=== PATIENT | male | born 1965 | race Caucasian/White ===

== ENCOUNTER 2023-12-17 14:37 | Emergency (ER) | payer OTHER, SELFPAY ==
[2023-12-17 14:43] VITALS: BP 215/131
[2023-12-17 15:03] LABS: % Basophils 0.8 % (0-2); % Eosinophils 2.2 % (0-6); % Immature Granulocytes 0.6 % (0-0.5); % Lymphocytes 17.8 % (20.5-51.1); % Monocytes 8.2 % (1.7-9.3); % Neutrophils 70.4 % (42.2-75.2); Absolute Basophils 0.1 10^3/uL (0-0.2); Absolute Eosinophils 0.2 10^3/uL (0-0.7); Absolute Immature Granulocytes 0.1 10^3/uL (0-0.05); Absolute Lymphocytes 1.6 10^3/uL (1.2-3.4); Absolute Monocytes 0.7 10^3/uL (0.1-0.6); Absolute Neutrophils 6.2 10^3/uL (1.4-6.5); Hematocrit 45.5 % (39.0-52.0); Hemoglobin 16.8 g/dL (13.0-18.0); Mean Corp Hgb Conc. 36.9 g/dL (33.0-37.0); Mean Corpuscular Hgb 33.8 pg (27.0-31.0); Mean Corpuscular Volume 91.5 fL (80.0-94.0); Mean Platelet Volume 8.1 fL (7.4-10.4); Nucleated Red Blood Cells % 0 % (-); Platelet Count 262 10^3/uL (130-400); Red Blood Cell Count 4.97 10^6/uL (4.70-6.10); Red Cell Dist. Width 12.5 % (11.5-14.5); White Blood Cell Count 8.8 10^3/uL (4.8-10.8)
[2023-12-17 15:19] LABS: ALT (SGPT) 26 U/L (0-50); AST (SGOT) 29 U/L (17-59); Albumin 4.5 g/dl (3.5-5.0); Alkaline Phosphatase 69 U/L (38-126); Blood Urea Nitrogen 20 mg/dl (9-20); Carbon Dioxide 25 mmol/L (22-30); Chloride 99 mmol/L (98-107); Glucose 123 mg/dl (70-99); Potassium 4.4 mmol/L (3.5-5.1); Sodium 137 mmol/L (135-145); Total Bilirubin 1.1 mg/dl (0.2-1.3); Total Protein 7.4 g/dl (6.3-8.2); eGFR > 60.00
[2023-12-17 16:23] VITALS: BMI 35.8
[2023-12-17 16:27] VITALS: BP 177/112
[2023-12-17 16:30] VITALS: BP 188/124
[2023-12-17 17:00] VITALS: BP 163/121
[2023-12-17] MEDS: NORVASC 10 MG PO (17:23)
[2023-12-17 18:00] VITALS: BP 184/122
--- NOTE | 2023-12-17 18:05 | ED.SKININJ ---
HPI-Injury
General
Chief Complaint: Skin Surface Trauma
Source: patient
Exam Limitations: none
Time Seen by Provider: 12/17/23 16:09
Nursing documentation reviewed up to this point in time: agreed with
Travel History
Have you had any contact with someone who has COVID-19?: No
Do you have any symptoms of coronavirus? Fever > 100 degrees, chills, cough, shortness of breath, sore throat, loss of taste or smell, muscle aches, or headache?: No
History of Present Illness-Injury
Initial Injury comments:
58-year-old male with history of HTN, hyperglycemia at 1 time was morbidly obese and after losing weight and getting in shape his hypertension and hyperglycemia no longer needed to be treated. He presents today with a 2-day-old laceration of the
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 He states he has been applying ice to the lip. He states he figured it would heal
on its own but his talked him into coming here to get it evaluated. On arrival his blood pressure was very high at 215/131 and then rechecked 163/121.
He admits that he has gained 25 pounds, has started drinking again and feels very unhealthy.
He denies headache, denies chest pain or trouble breathing.
Review of Systems
Review of Systems
Allergies reviewed?: Yes
All Other Systems: ROS reviewed and negative except as documented in HPI and ROS
Constitutional: Denies fever
EENT: Reports mouth swelling (Upper lip swollen, thick scab on most of the upper lip, laceration mid upper lip)
Cardiac: Denies chest pain
ABD/GI: Denies abdominal pain or nausea
Musculoskeletal: Denies edema
Skin: Reports other (Old laceration upper lip)
Neurological: Denies dizzy, headache, weakness or numbness
Phy Exam
Physical Exam
Physical Exam:
GENERAL: No acute distress. A&Ox3.
CONSTITUTIONAL: Afebrile.
EYES: PERRL, conjunctivae normal
ENMT: moist mucus membranes, Pharynx nl
RESPIRATORY: Regular respirations, nonlabored, lungs clear.
CARDIOVASCULAR: Regular rate and rhythm, no murmurs, no rubs.
GI: Soft, obese, nontender, normal BS
MUSCULOSKELETAL: Moves with ease. Well perfused. No edema
SKIN: Warm, dry, pink. There is a midline upper lip laceration edges about 3 mm apart with pink granulation tissue, thick surrounding eschar bilaterally on either side of the laceration covering most of the inner upper lip.
PSYCH: Anxious mood and affect. Well kept, interactive and appropriate
NEUROLOGIC: Awake, alert and oriented. No focal neurological deficits
Course
Orders/Labs/Results
Orders:
Orders
12/17/23 14:53
CBC/With Diff [Complete Blood Count/With Diff] Urgent
CMP [Comprehensive Metabolic Panel] Urgent
12/17/23 17:00
Amlodipine [Norvasc] 10 mg PO DAILY
12/17/23 18:09
Electrocardiogram (*1) Urgent
Reason for Study: Hypertension, Benign
EKG- Treatment ONCE
12/17/23 18:17
Hydrochlorothiazide [Oretic] 25 mg PO NOW STA
Abnormal Lab Results
12/17/23
14:53
MCH 33.8 H pg
(27.0-31.0)
Abs Immat Gran (auto) 0.1 H 10^3/uL
(0-0.05)
Absolute Monos (auto) 0.7 H 10^3/uL
(0.1-0.6)
Immature Gran % 0.6 H %
(0-0.5)
Lymphocytes % 17.8 L %
(20.5-51.1)
Glucose 123 H mg/dl
(70-99)
02/11/24 14:53
12/17/23 14:53
Vital Signs
Initial and Last Documented VS:
Initial Vital Signs
Temp Pulse Resp BP Pulse Ox
98.4 F 109 16 215/131 98
12/17/23 14:43 12/17/23 14:43 12/17/23 14:43 12/17/23 14:43 12/17/23 14:43
Last Documented Vital Signs
Temp Pulse Resp BP Pulse Ox
98.4 F 92 18 184/122 92
12/17/23 14:43 12/17/23 18:00 12/17/23 18:00 12/17/23 18:00 12/17/23 18:00
MDM/Problems Addressed
Differential Diagnosis Includes:
Essential hypertension, hypertensive urgency
MDM/Problems Addressed:
58-year-old male with history of HTN, hyperglycemia at 1 time was morbidly obese and after losing weight and getting in shape his hypertension and hyperglycemia no longer needed to be treated. He presents today with a 2-day-old laceration of the
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 He states he has been applying ice to the lip. He states he figured it would heal
on its own but his talked him into coming here to get it evaluated. On arrival his blood pressure was very high at 215/131 and then rechecked 163/121.
He admits that he has gained 25 pounds, has started drinking again and feels very unhealthy.
He denies headache, denies chest pain or trouble breathing.
Patient admits to being extremely anxious due to 'the way the world is now.' He was on antidepressants at 1 point but he gained weight and had sexual dysfunction so he stopped.
12/17/2023 1609 PM
CBC normal
CMP normal
12/17/2023 1800 PM
1 hour post p.o. Amlodipine 10 mg, patient BP is actually worse 184/122
12/17/2023 1825 PM
Case discussed with Dr. Schulte, agrees with adding HCTZ to Amlodipine. Rx sent to his pharmacy for both.
BP 181/96
EKG: NSR Left axis deviation, Incomplete RBBB
Instructed to f/u with PCP in 3-5 days for BP recheck.
Referred to plastic surgery if lip does not meet his esthetic approval after scab falls off and lip swelling subsides. There is no warmth or redness, no sign of cellulitis/infection.
*EKG
EKG Intrepretation Date: 12/17/23
Interpretation: abnormal
Comparison EKG: no comparison EKG present
Rate: normal
Rhythm: sinus
[place]: left axis deviation
Interval: normal interval
QRS Pattern: normal QRS
Ischemia: no ischemia
*Critical Care Note
Total Time (30-74mins, 75-104mins- exclusive of procedures): Not Applicable
ED Attending Note
-
Portions of this chart may have been created with voice recognition software.� Occasional wrong word or��sound alike� substitutions may have occurred due to the inherent limitations of voice recognition software.
Discharge Plan
Departure
Patient Disposition: Home (Routine Discharge)
Date of Disposition: 12/17/23
Time of Disposition: 18:17
Patient with high blood pressure during this ER visit?: Yes
Condition: Fair
Discharge Problem:
Hypertension
Instructions: High Blood Pressure (DC), Controlling your blood pressure through lifestyle
Prescriptions:
New
amlodipine [Norvasc] 10 mg tablet
10 mg PO DAILY Qty: 30 0RF
hydrochlorothiazide 25 mg tablet
25 mg PO DAILY Qty: 30 0RF
Referrals:
Shan Brown, DO [Active] - As needed
Hair Giang MD [Family Provider] -
Activity Restrictions/Additional Instructions:
As we discussed, your blood pressure is worrisomely high.
I sent a prescription to your pharmacy for Amlodipine (Norvasc) and HCTZ (Hydrochlorothiazide) to start tomorrow as you were given a dose here today.
Call your family doctor and make appointment for 3-5 days to have a blood pressure check.
Take copy of your EKG and lab results with you.
Your lip laceration is too old to suture. After the scab falls off and the swelling goes down, after 3-4 weeks, if the lip does not look like it did before the injury, make appointment with the plastic surgeon for a scar revision.
Interventions
Interventions:
*Risk Screen - Suicide Last Done: 12/17/23 14:43
*General Assessment Last Done: 12/17/23 14:43
*Neglect/Abuse Screening Last Done: 12/17/23 14:43
*ED COVID-19 Vaccine History Last Done: 12/17/23 16:25
ED-Skin Assessment Last Done: 12/17/23 16:27
[2023-12-17 18:20] VITALS: BP 181/96
[2023-12-17] MEDS: ORETIC 25 MG PO (18:49)
== END 2023-12-17 18:55 | disposition home or self-care (01) ==
LOC: EMR 14:37
PROVIDERS: Emergency Medicine; EMERGENCY PHYSICIAN Student in an Organized Health Care Education/Training Program; FAMILY PHYSICIAN Internal Medicine
DX: S01.511A Laceration without foreign body of lip, initial encounter (principal); W18.09XA Striking against other object with subsequent fall, initial encounter; I45.10 Unspecified right bundle-branch block; I10 Essential (primary) hypertension; Z88.0 Allergy status to penicillin
CPT/HCPCS: 99283; 80053; 85025; 93005

== ENCOUNTER → 2024-01-12 08:27 | Outpatient (REF) | payer OTHER, SELFPAY | LOC: DHCBC HW 08:27 | PROVIDERS: ATTENDING PHYSICIAN Internal Medicine Cardiovascular Disease; FAMILY PHYSICIAN Internal Medicine | DX: R07.2 Precordial pain (principal) | CPT/HCPCS: 93306 ==

== ENCOUNTER → 2024-06-26 07:15 | Outpatient (REF) | payer OTHER, SELFPAY | LOC: RCS 07:15 | PROVIDERS: ATTENDING PHYSICIAN Internal Medicine Cardiovascular Disease; FAMILY PHYSICIAN Internal Medicine | DX: R94.31 Abnormal electrocardiogram [ECG] [EKG] (principal); R07.89 Other chest pain | CPT/HCPCS: 78452; 93017; A9500 ==

== ENCOUNTER 2024-06-28 13:40 | Inpatient (IN) | payer OTHER, SELFPAY ==
[2024-06-28] VITALS (16 sets, daily range): BP systolic 130–153; BP diastolic 82–102; BMI 34.5
[2024-06-28] MEDS: NSS 327 ML IV (08:31)
[2024-06-28 08:40] LABS: Hematocrit 44.2 % (39.0-52.0); Hemoglobin 15.8 g/dL (13.0-18.0); Mean Corp Hgb Conc. 35.7 g/dL (33.0-37.0); Mean Corpuscular Hgb 32.6 pg (27.0-31.0); Mean Corpuscular Volume 91.3 fL (80.0-94.0); Mean Platelet Volume 8.4 fL (7.4-10.4); Platelet Count 285 10^3/uL (130-400); Red Blood Cell Count 4.84 10^6/uL (4.70-6.10); Red Cell Dist. Width 12.4 % (11.5-14.5); White Blood Cell Count 7.9 10^3/uL (4.8-10.8)
[2024-06-28 08:52] LABS: Blood Urea Nitrogen 23 mg/dl (9-20); Calcium 9.6 mg/dl (8.4-10.2); Carbon Dioxide 29 mmol/L (22-30); Chloride 98 mmol/L (98-107); Estimated Creatinine Clearance 108 ml/min; Glucose 156 mg/dl (70-99); Potassium 4.2 mmol/L (3.5-5.1); Sodium 140 mmol/L (135-145); eGFR > 60.00
[2024-06-28] MEDS: NSS 1000 IV (10:03)
[2024-06-28 10:36] LABS: APTT 93.6 Sec (23.4-35.0)
--- NOTE | 2024-06-28 10:49 | CONSULT.CT ---
Addendum entered and electronically signed by Cleveland Matthews MD 06/29/24 09:13:
I saw and examined the patient.
The PA's note was reviewed and I agree with the note.
Comment:
It was my pleasure to evaluate Mr. Arjun Coles. I have reviewed his medical history, presentation, and available imaging. I had a long conversation at bedside with Mr. Coles and his . We discussed his coronary pathology, the need for
cardiac surgical intervention, the proposed operative interventions, the associated procedural risks, the expected in-hospital postprocedural course, and the expected outpatient recovery. All questions were answered to the best of my abilities.
The patient is agreeable to proceed. He was initially not excited about remaining in the hospital, but was more understanding after our discussions. I have tentatively scheduled him for CABG this coming Monday. I anticipate RITCHIE to LAD, RA to
OM, and greater saphenous vein bypasses to his diagonals and PDA. Will continue with preoperative workup. All questions are to the best of my abilities.
Thank you for the opportunity to participate in the care of this kind gentleman.
Please call with any questions or concerns
Cleveland Matthews MD
[phone]
Original Note:
Consultation
-
Date/Time Consultation Requested: 06/28
Date/Time Consultation Performed: 06/28
Performing Provider: Samia Del Castillo for Dr. Cleveland Matthews
Reason for Consultation: CABG evaluation
Patient History
Physicians
Family Physician: Hair Giang
Outpatient Senior Safety Support Manager: Britney Victoria
History of Present Illness
59-year-old right hand dominant male was electively admitted on 06/28/2024 for diagnostic left heart catheterization. Patient had been experiencing intermittent exertional midsternal chest pressure that was relieved by rest. Patient had
ECG on 12/17/2023 that reported inferior infarct pattern. Outpatient echocardiogram on 01/12/24 reported an EF of 55-60% with stage I diastolic dysfunction, no regional wall motion abnormalities, and no valvular pathology. A stress test on 06/26/2024
reported a moderate reversible apical and inferior apical defect with ejection fraction 58%. Patient did not experience any symptoms during the stress test but has curtailed his activity for the past 6 months to avoid symptom aggravation. Patient
also reports he has gained 20 pounds in the past 6 months due to inactivity. Arjun is quite surprised by the cath findings and need for CABG.
[facility] 06/28/24:
DOMINANCE: Right
LEFT MAIN: Separate origins of of LAD and circumflex
LEFT ANTERIOR DESCENDING: Long 99% mid LAD stenosis spanning 15-20 mm. The mid to distal LAD has minor irregularities. 60% proximal D1 stenosis. 65-70% mid D2 stenosis.
CIRCUMFLEX: Long 80-90% stenosis extending into the proximal portion of the only significant obtuse marginal branch
RIGHT CORONARY ARTERY: Proximal 50% stenosis RCA, mid 30 to 40% stenosis and long 40-60% stenosis distally. The PDA is large with luminal irregularities
VENTRICULOGRAPHY: EF 60%.
Past Medical History
Past Medical History: HTN and Other (obesity (BMI 34.5), hyperglycemia )
Past Surgical History
Past Surgical History: Other (abdominal and right inguinal hernia repair)
Dental History
N/A
Social History
Alcohol: Occasional (2-4 vodkas on weekends)
Drug: None
Tobacco: Former Smoker (quit 20 years go)
Personal:
Living: With Spouse
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
Allergies
Allergy/AdvReac Type Severity Reaction Status Date / Time
Penicillins AdvReac Nausea / Verified 06/28/24 08:18
Vomiting
Home Medications
�Medication �Instructions �Recorded �Confirmed �Type
amlodipine 10 mg tablet (Norvasc) 10 mg PO DAILY #30 tabs 12/17/23 06/28/24 Rx
hydrochlorothiazide 25 mg tablet 25 mg PO DAILY #30 tabs 12/17/23 06/28/24 Rx
aspirin 81 mg tablet 81 mg PO DAILY 06/28/24 06/28/24 History
Review of Systems
-
History Source: Patient
General: Reports Weight Gain
HEENT: Reports No Symptoms
Respiratory: Reports No Symptoms
Cardiac: Reports Chest Pain (exertional)
Abdomen/GI: Reports No Symptoms
: Reports No Symptoms
Musculoskeletal: Reports No Symptoms
Skin: Reports No Symptoms
Neurological: Reports No Symptoms
Vascular: Reports No Symptoms
Physical Exam
Vital Signs
Temp 97.4 F 06/28/24 08:19
Temp route: Temporal 06/28/24 08:19
Pulse 84 06/28/24 10:34
Resp Rate 15 06/28/24 10:34
Blood pressure 145/92 06/28/24 10:34
Blood pressure extremity used: Right upper arm 06/28/24 10:45
Position: Lying 06/28/24 10:45
MAP (cuff-Amos Monitor) 108 06/28/24 10:34
SaO2 95 06/28/24 10:34
Oxygen Mode of Delivery Room air 06/28/24 10:45
Can the patient verbally communicate their pain? Yes 06/28/24 10:45
Pain scale ratin 06/28/24 10:45
Actual Weight 109.1 kg 06/28/24 08:08
Body Mass Index (BMI) 34.5 06/28/24 08:08
Labs
06/28/24 08:02
06/28/24 08:02
APTT 93.6 Sec (23.4-35.0) H 06/28/24 10:18
Exam
General: No Apparent Distress and Other (obese)
HEENT: Normocephalic, Anicteric and Moist Mucous Membranes
Neck: Trachea Midline
Respiratory: Clear
Cardiac: Regular Rhythm
GI: Soft and Normal Bowel Sounds
Rectal: Deferred by Provider
Skin: Warm and Dry
Neuro: AO x 3, No Motor Deficits and Nonfocal/Grossly Intact
Extremities: Pulses (+2/4 DP pulses B/L) and Other (Right radial TR band intact without bleeding)
Lymph: No Lymphadenopathy
Psych: Other (upset by need for hospitalization/surgery)
Assessment / Plan
-
59-year-old male with multivessel coronary disease and preserved EF
-Dr. Matthews to review imaging and discuss risk-benefit with patient and
-Preop diagnostic testing ordered
- A1C is 6.9>will consult diabetes team for recommendations
Data Reviewed
-
EKG: Report Reviewed by me and Discussed with Physician
Software Support Specialist: Report Reviewed by me and Discussed with Physician
Echo: Report Reviewed by me and Discussed with Physician
Radiology: Report Reviewed by me and Discussed with Physician
Labs: Labs Reviewed by me and Discussed with Physician
[2024-06-28 11:08] LABS: Glycohemoglobin (HgbA1c) 6.9 % (4.0-5.6)
--- NOTE | 2024-06-28 13:13 | CM ---
Reviewed chart. Met with Mr. Coles to review discharge plans. He states prior to admission he resides with his spouse in a spilt level home. He stats he has steps to each level. He states he has appox. five steps to each level. He states prior
to admission he was independent with ambulation and adls. He states he does not have any DME in the home. He states he has a prescription plan and uses [facility]. Medical work-up in progress. The discharge plan is to return home with his
spouse when medically stable.
--- NOTE | 2024-06-28 13:51 | ITS.CL.CATH ---
[facility] - Catheterization
Cardiac Catheterization
Procedure Report:
LEFT HEART CATHETERIZATION
Date of Procedure: June 28, 2024
Referring: Dr. Britney Victoria
PROCEDURES:
1. Left heart catheterization with coronary and single-plane left ventriculography
INDICATION: Chest pain with abnormal stress test. Symptoms have been present for 6 months but may be worsening recently
ACCESS: Right radial artery, 6 Tamazight sheath
HEMODYNAMICS : (mmHg)
AO (s/d) : 129/85
LV (s/d) : 148/13
LVEDP : 24
CORONARY FINDINGS
DOMINANCE: Right
LEFT MAIN: Separate origins of of LAD and circumflex
LEFT ANTERIOR DESCENDING: The LAD arises normally from the left main and runs in the anterior interventricular groove. There is a 20% proximal LAD stenosis. There is a long 99% mid LAD stenosis spanning 15-20 mm. The mid to distal LAD has minor
irregularities. 2 diagonal branches arise very proximally from the LAD and runs in a distribution typical for a ramus intermedius. The first diagonal branch has a 60% proximal stenosis. The second diagonal branch is a 65-70% mid stenosis.
CIRCUMFLEX: The circumflex has separate origin from the LAD. The mid circumflex is a long 80-90% stenosis extending into the proximal portion of the only significant obtuse marginal branch
RIGHT CORONARY ARTERY: The right coronary artery has a large-caliber dominant vessel with a proximal 50% stenosis, mid 30 to 40% stenosis and long 40-60 percent stenosis distally. The PDA is large with luminal irregularities
VENTRICULOGRAPHY: Left ventriculography is performed in MELTON projection. The digital single-plane left ventricular ejection fraction is estimated at 60%.
RADIATION SUMMARY: Fluoro Time (min): 3.8, Dose (mGy): 566, DAP (Gy.cm2) : 41.7
Closure Device: TR Band
CONCLUSIONS
1. Multivessel coronary artery disease with subtotal occlusion of the mid left anterior descending and high grade stenosis in the first and second diagonal branches, mid circumflex extending to OM2 and moderate diffuse atherosclerosis in the RCA.
2. Preserved left ventricular systolic function
RECOMMENDATIONS
1. Will admit to IVU for CT surgical consult
Copy to: Dr. Britney Victoria
--- NOTE | 2024-06-28 14:29 | PN.DE.MGMTRT ---
Insulin Management
- -
06/28/2024: Diabetes Management consult
59 year old male with hx of chest pain with abnormal stress test, admitted for cardiac cath--> severe MVCA, awaiting CT surgical consult.
Pt reports hx of T2DM, was taking Janumet, exercising regularity, eating healthy and ended up losing ~40lbs which prompted him to stop taking his diabetes meds. He also stopped exercising 6 months ago due to chest pain and ended up gaining ~20 lbs
back. states he has a glucose meter and was regularly testing his blood sugars before he stopped taking his meds.
Current A1C is 6.9%, fasting glucose 156 this AM. Cr 0.9. eGFR>60.
Pt is awake, A/O x3, sitting up in bed, very emotional, states he can't take any more bad news and that he does not want to hear any mention of insulin.
Explained to pt that he temporarily may need sliding scale insulin since he is not a candidate for MFM x48 hrs post cardiac cath and contrast exposure.
Pt was agreeable, stating that as long as he does not go home on insulin.
Will start insulin SS- Low corrective and Januvia 100mg daily, 1st dose in AM. Will start Metformin 500mg BID on 06/30 in AM
Check Accucheks AC/HS. Change diet to 1800 andreea
Updated Pt's nurse and [facility] team
Diabetes History
- -
Type of Diabetes: 2
Pre-Admission Diabetes Regimen
06/28/24
08:02
Creatinine 0.9
Lab Results
Hemoglobin A1c 6.9 % (4.0-5.6) H 06/28/24 08:02
Insulin Pump Settings
IP Diabetes Regimen
06/28/24
08:02
Glucose 156 H
Patient Education
[2024-06-28] MEDS: HEPARIN 25000 UNITS/250 ML IV (14:33)
[2024-06-28 18:07] LABS: Glucose - Point of Care 112 mg/dl (70-99)
[2024-06-28] MEDS: LIPITOR 80 MG PO (18:24)
--- NOTE | 2024-06-28 19:27 | PTCARENOTE ---
Pt received post cardiac cath done via right radial access. Radial band removed per protocol. Pt quite dismayed by cath results , pt seen by and he is agreeable to plan for CVOR next week. Anti anxiety medication available if needed. Pt
started on IV heparin as ordered. Telemetry shows sinus rhythm. Plan for pre op teaching.
[2024-06-28 21:22] LABS: APTT 30.9 Sec (23.4-35.0)
[2024-06-28] MEDS: LOPRESSOR 25 MG PO (21:24)
[2024-06-28 21:56] LABS: Glucose - Point of Care 162 mg/dl (70-99)
--- NOTE | 2024-06-28 22:00 | PTCARENOTE ---
assumed care of patient at the change of shift. AAOx3. very frustrated. patient 'does not want to be here.' attempted to educated patient on the importance of hospital stay, medications, etc. patient does not want to hear it and wants to go home.
attempted to provide comfort measures. PRN Ativan offered and patient refused at this time. HR SR with a BBB 80s. bp stable. denies any cp/sob. independent in the room. R radial site CDI. heparin gtt infusing per protocol. educated to call RN with
any changes. call lara within reach.
[2024-06-29 03:24] VITALS: BP 129/91
[2024-06-29 03:42] LABS: B.E. 4.9 mmol/L; HCO3 29.9 mmol/L (21-28); O2 Saturation % 93.9 % (94-98); PCO2 44 mmHg (35-48); PO2 61 mmHg (83-108); pH 7.44 (7.35-7.45)
[2024-06-29 04:00] LABS: Hematocrit 43.4 % (39.0-52.0); Hemoglobin 15.7 g/dL (13.0-18.0); Mean Corp Hgb Conc. 36.2 g/dL (33.0-37.0); Mean Corpuscular Hgb 33.6 pg (27.0-31.0); Mean Corpuscular Volume 92.9 fL (80.0-94.0); Mean Platelet Volume 8.5 fL (7.4-10.4); Platelet Count 239 10^3/uL (130-400); Red Blood Cell Count 4.67 10^6/uL (4.70-6.10); Red Cell Dist. Width 12.2 % (11.5-14.5); White Blood Cell Count 8.8 10^3/uL (4.8-10.8)
[2024-06-29 04:06] LABS: INR 1.06; PT 13.6 Sec (11.4-14.6)
[2024-06-29 04:07] LABS: APTT 37.9 Sec (23.4-35.0)
[2024-06-29 04:34] LABS: ALT (SGPT) 43 U/L (0-50); AST (SGOT) 33 U/L (17-59); Albumin 4.3 g/dl (3.5-5.0); Alkaline Phosphatase 68 U/L (38-126); Blood Urea Nitrogen 17 mg/dl (9-20); Calcium 9.3 mg/dl (8.4-10.2); Carbon Dioxide 30 mmol/L (22-30); Chloride 98 mmol/L (98-107); Direct Bilirubin 0.2 mg/dl (0.0-0.4); Estimated Creatinine Clearance 121 ml/min; Glucose 152 mg/dl (70-99); Potassium 3.9 mmol/L (3.5-5.1); Sodium 137 mmol/L (135-145); Total Bilirubin 0.8 mg/dl (0.2-1.3); Total Protein 6.6 g/dl (6.3-8.2); eGFR > 60.00
[2024-06-29 06:00] VITALS: BMI 34.0
[2024-06-29 07:14] VITALS: BP 136/85
--- NOTE | 2024-06-29 08:29 | W.PN.CARDCBS ---
Addendum entered and electronically signed by Patricia Garcia DO 06/29/24 15:13:
I saw and examined the patient.
The Necktie Stitcher's note was reviewed and I agree with the note.
Comment: Notified by Dr. Matthews, CT surgery that patient has declined staying for CABG next week and was planning to sign out AMA. Per CT surgery, Dr. Matthews spoke with both patient in room as well his his Cherelle over the phone and DrSherif
Byron reviewed potentially life-threatening risks of delaying revascularization/CABG.
.
I spoke with Mr. Coles in his room and resquested his be apart of our conversation. He called his Xiomara on his phone and informed her she was on speaker phone. Nurse, Teodora Lucas, was present as a witness. Patient and his were
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
uncompleted ' and they expressed concerned that if he proceeds with bypass surgery now it would be 'catastrophic' on their financial wellbeing with fears of losing their home. He wishes to delay bypass surgery until August. I reviewed images
obtained at time of cardiac catheterization to allow him to visualize the severity of his multivessel coronary artery disease particularly the LAD which has a long 99% mid stenosis which appears as a 'thin string'. Patient's had previously
admitted seeing these images and discussing findings with Dr. Dennison. We again reviewed the severity and multivessel nature of his coronary artery disease which poses high risk for severe myocardial infarction with possible severe long- lasting
effects/heart failure and/ or a life ending myocardial event. During our discussions, Mr. Coles had an 11 beat run of NSVT. I reviewed this concerning arrhythmia with both patient and his over the phone including his risk for outpatient
life-ending arrhythmia cardiac arrest. Mr. Coles and his Xiomara stated they understood the risks including but still plan to leave today AGAINST MEDICAL ADVICE. Mr. Coles's , Xiomara was upset and became angry with raised
voice over the phone stating that ' she was educated and came from a family of physicians', she stated she felt 'gas-lighted' that it took 8 hours to be seen by CT surgery and repeated it would be 'catastrophic for them to lose their home'. She
reacted angry with me and was adamant that 'she could get him back to the hospital' if needed.
Following this initial interaction, I again discussed his case with both Dr. Matthews and Dr. Dennison. We are all in agreement that bypass surgery is the best option for his multivessel coronary artery disease however Dr. Dennison offered less favorable
option for revascularization with PCI. I returned to the patient's room with nurse Araiza to discuss the option of him remaining hospitalized over the weekend with plan for PCI on Monday with Dr. Dennison. He expressed understanding that his best
option for his coronary artery disease would by bypass surgery but is agreeable to remain hospitalized over the weekend with plan for left heart catheterization/revascularization with PCI on Monday with Dr. Dennison. Dr. Dennison and Dr. Matthews
informed of patient's decision
Plan:
Multivessel coronary artery disease with significant LAD/circumflex disease
-Continue telemetry monitoring with plan for PCI intervention on Monday with Dr. Dennison
-2D echocardiogram January 2024 with normal biventricular size and systolic function and no regional wall motion abnormality. No hemodynamically significant valve disease with aortic sclerosis.
-Continue IV heparin drip
-Continue aspirin
-Check fasting lipid profile; continue high intensity atorvastatin (new)
-Will increase beta-yanet given NSVT and closely monitor telemetry
Type 2 diabetes mellitus with hemoglobin A1c 6.9% with fatty liver infiltration on CT chest
-Will hold metformin with plans for left heart catheterization on Monday
-Eventual addition of Jardiance 10 mg daily; will have case management assess cost
-Importance of normoglycemia stressed
Possible interstitial fibrosis on CT of the chest with slightly enlarged lymph nodes in the mediastinum felt to be reactive�will recommend outpatient pulmonary evaluation
Original Note:
Today's Communication / Plan
-
CT surgery evaluation ongoing
Continue aspirin, heparin
Impression / Plan
-
PCP: Dr. Hair Giang
Sheep Farm Worker: Dr. Britney Victoria
Impression:
CAD
MV CAD by cath 06/28/2024
Hypertension
Hyperlipidemia
DM2, Hgb A1c 6.9%
Echo 01/12/2024: EF 55-60%, stage I diastolic dysfunction, no significant valvular disease
LHC 06/28/2024: LAD: long 99% mid LAD stenosis, D1 has 60% proximal stenosis, D2 has 65-70%. Mid-LCx has 80-90% stenosis. RCA has proximal 50% stenosis, mid 30-40% stenosis with long 40-60% stenosis distally.
Plan:
-Presented for [facility] due to chest pain and abnormal stress test as OP.
-Found to have MV CAD with long 99% stenosis of the LAD. CT surgery evaluation ongoing.
-Continue IV heparin.
-Continue aspirin 81mg daily.
-BP and HR stable. Continue lopressor 25mg BID and amlodipine 10mg daily.
-No chest pain overnight.
-Hgb A1c elevated at 6.9%. Seen by Diabetic GLASS TUBE BENDER, on metformin and Januvia.
-Continue lipitor 80mg daily. Check CVE in AM.
Progress Note - Sheep Farm Worker
Subjective
Date of Service: June 29, 2024
Objective
Labs:
06/29/24 03:28
06/29/24 03:28
Labs
Hgb 15.7 g/dL (13.0-18.0) 06/29/24 03:28
Hct 43.4 % (39.0-52.0) 06/29/24 03:28
Plt Count 239 10^3/uL (130-400) 06/29/24 03:28
PT 13.6 Sec (11.4-14.6) 06/29/24 03:28
INR 1.06 06/29/24 03:28
APTT 37.9 Sec (23.4-35.0) H 06/29/24 03:28
APTT Cancelled 06/29/24 03:28
Sodium 137 mmol/L (135-145) 06/29/24 03:28
Potassium 3.9 mmol/L (3.5-5.1) 06/29/24 03:28
BUN 17 mg/dl (9-20) 06/29/24 03:28
Creatinine 0.8 mg/dL (0.7-1.3) 06/29/24 03:28
Glucose 152 mg/dl (70-99) H 06/29/24 03:28
Vital Signs and I&O:
Vital Signs
Temp Pulse Resp BP Pulse Ox
98.3 F 65 20 130/94 95
06/29/24 07:24 06/29/24 02:15 06/29/24 07:24 06/28/24 22:37 06/29/24 07:24
Vital Signs
Temp Pulse Resp BP Pulse Ox
98.3 F 65 20 130/94 95
06/29/24 07:24 06/29/24 02:15 06/29/24 07:24 06/28/24 22:37 06/29/24 07:24
Intake & Output
06/27/24 06/28/24 06/29/24 06/30/24
06:59 06:59 06:59 06:59
Intake Total 742 / 742
Balance 742 / 742
[2024-06-29 09:05] LABS: Glucose - Point of Care 146 mg/dl (70-99)
[2024-06-29] MEDS: JANUVIA 100 MG PO (09:05)
[2024-06-29] MEDS: NORVASC 10 MG PO (09:05)
[2024-06-29] MEDS: LOPRESSOR 25 MG PO (09:05)
[2024-06-29] MEDS: LOW STRENGTH ASPIRIN 81 MG PO (09:05)
[2024-06-29] MEDS: HEPARIN 25000 UNITS/250 ML IV (09:38)
--- NOTE | 2024-06-29 10:18 | W.PN.UPDATE ---
Update Note
Progress Note Update
CARDIAC SURGERY ATTENDING:
I had a conversation with Mr. Arjun Coles at his bedside this morning. His was present via speaker phone. Both Mr. Coles and his were quite adamant about leaving the hospital and rescheduling his surgery for a later date. They
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
While I clearly understand these stresses, I informed both Mr. Coles and his that given the severity and multivessel nature of his CAD, it was medically advisable for him to remain in the hospital. We discussed the possibility that he could
suffer a life ending cardiac event should he opt to leave AGAINST MEDICAL ADVICE. Despite our conversations, both Mr. Coles and his remains steadfast in their desire to leave and rescheduled her surgery. I informed the medical team this
discussion. I am happy to see the patient in an outpatient setting and would advise him to return as soon as possible to schedule his surgery.
Thank you.
Cleveland Matthews MD
[phone]
--- NOTE | 2024-06-29 11:00 | PTCARENOTE ---
asked to witness a conversation between patient and patient's with Dr Mitchell. The severity of CAD was explained at length to include severe LAD occlusion and poor prognosis if patient left AMA. Pt was shown pictures of cardiac cath to
visualize how severe blockage is - pt and verbally acknowledge seeing pictures. They were both told patient was at high risk of sudden cardiac as well as potential for severe CA with severe lasting effects if he did not stay in hospital.
The patient and repeatedly indicated they understood risks to include and wish to leave AMA. Doctor was very calm, patient and informative. Pts perception of event was she was being 'talked down to'. Pt and feel they are at
risk of losing home if he stays in hospital and want to defer surgery to August as they feel 'things are not that bad'. Pt's felt she could get pt back to hospital if something were to happen at home. Pt's appears angry with medical
team and felt 'gaslighted' with initial medical attention.
[2024-06-29 11:48] VITALS: BP 125/77
[2024-06-29 12:15] LABS: APTT 42.7 Sec (23.4-35.0)
[2024-06-29 14:36] LABS: Glucose - Point of Care 151 mg/dl (70-99)
[2024-06-29 15:42] VITALS: BP 123/85
[2024-06-29 17:49] LABS: Glucose - Point of Care 147 mg/dl (70-99)
[2024-06-29] MEDS: LIPITOR 80 MG PO (17:56)
[2024-06-29 18:27] VITALS: BP 151/99
--- NOTE | 2024-06-29 18:47 | PTCARENOTE ---
Pt happy with new plan for proposed PCI on 07/01. SBP in 120's, telemetry shows sinus rhythm with one 11 beat run NSVT this morning. He denies any discomfort. Heparin infusion still not at a therapeutic level. Pt states he realizes that he needs to
make some changes in his lifestyle, asking many questions and reading relevant CAD materials.
[2024-06-29 19:08] LABS: APTT 57.3 Sec (23.4-35.0)
[2024-06-29] MEDS: TOPROL XL 25 MG PO (19:44)
[2024-06-29 22:08] VITALS: BP 133/99
[2024-06-29 22:11] LABS: Glucose - Point of Care 120 mg/dl (70-99)
--- NOTE | 2024-06-29 23:55 | PTCARENOTE ---
Pt received start of shift, HR SR w/ BBB. Pt more agreeable to care tonight. Pt states they are motivated to making lifestyle changes such as more exercise, weight loss, blood glucose control, and better eating habits. Reinforced CAD education w/ pt
as well as purpose of new medications. Heparin infusing at 1800u/hr. Pt denies any CP. Informed to notify RN if any changes, call lara within reach.
[2024-06-30 02:12] VITALS: BP 131/87
[2024-06-30] MEDS: HEPARIN 25000 UNITS/250 ML IV ×2 (02:15→14:57)
--- NOTE | 2024-06-30 02:33 | PTCARENOTE ---
Addendum entered by Tariq Castillo RN 06/30/24 02:40:
apneic episodes lasting about 10 seconds.
Original Note:
Pt O2 91-93% RA. Prior to being awoken for vitals this RN noticed loud snoring and frequent apneic episodes. Upon asking if pt had ever been diagnosed w/ sleep apnea the pt stated 'Oh patrice cameron, what? Now I have sleep apnea? I have been alive 60
years I'll live.' Pt refusing O2 overnight.
[2024-06-30 03:13] LABS: Hematocrit 41.3 % (39.0-52.0); Hemoglobin 15.2 g/dL (13.0-18.0); Mean Corp Hgb Conc. 36.8 g/dL (33.0-37.0); Mean Corpuscular Hgb 33.1 pg (27.0-31.0); Mean Platelet Volume 8.6 fL (7.4-10.4); Platelet Count 256 10^3/uL (130-400); Red Blood Cell Count 4.59 10^6/uL (4.70-6.10); Red Cell Dist. Width 12.5 % (11.5-14.5); White Blood Cell Count 9.7 10^3/uL (4.8-10.8)
[2024-06-30 03:22] LABS: APTT 78.6 Sec (23.4-35.0)
[2024-06-30 03:34] LABS: ALT (SGPT) 43 U/L (0-50); AST (SGOT) 35 U/L (17-59); Albumin 4.4 g/dl (3.5-5.0); Alkaline Phosphatase 69 U/L (38-126); Blood Urea Nitrogen 22 mg/dl (9-20); Calcium 9.5 mg/dl (8.4-10.2); Carbon Dioxide 30 mmol/L (22-30); Chloride 98 mmol/L (98-107); Estimated Creatinine Clearance 107 ml/min; Glucose 135 mg/dl (70-99); HDL Cholesterol 39 mg/dl; LDL Cholesterol, Calculated 109 mg/dl; Sodium 139 mmol/L (135-145); Total Bilirubin 1.1 mg/dl (0.2-1.3); Total Cholesterol 182 mg/dl (50-199); Total Protein 7.1 g/dl (6.3-8.2); Triglyceride 172 mg/dl (10-149); Very Low Density Lipoprotein 34 mg/dl (0-30); eGFR > 60.00
[2024-06-30 04:03] LABS: TSH Reflex To Free T4 3.94 uIU/ml (0.47-4.68)
[2024-06-30 06:00] VITALS: BMI 33.8
[2024-06-30 07:45] VITALS: BP 124/96
[2024-06-30 07:49] LABS: Glucose - Point of Care 131 mg/dl (70-99)
[2024-06-30] MEDS: TOPROL XL 25 MG PO ×2 (08:11→19:32)
[2024-06-30] MEDS: LOW STRENGTH ASPIRIN 81 MG PO (08:11)
[2024-06-30] MEDS: NORVASC 10 MG PO (08:11)
[2024-06-30] MEDS: JANUVIA 100 MG PO (08:12)
--- NOTE | 2024-06-30 09:24 | W.PN.UPDATE ---
Update Note
Progress Note Update
CARDIAC SURGERY ATTENDING:
Pt. decided to remain in hospital for planned PCI tomorrow
Will sign-off. Please call with questions.
[2024-06-30 09:56] LABS: APTT 83.8 Sec (23.4-35.0)
[2024-06-30 11:04] VITALS: BP 130/74
[2024-06-30 11:58] LABS: Glucose - Point of Care 86 mg/dl (70-99)
--- NOTE | 2024-06-30 14:43 | W.PN.CARDCBS ---
Today's Communication / Plan
-
IV heparin drip
Continue aspirin
Plavix load
N.p.o. after midnight for left heart catheterization 07/01/2024
Impression / Plan
-
PCP: Dr. Hair Giang
Line Painting Machine Operator: Dr. Britney Victoria
Impression:
CAD
MV CAD by cath 06/28/2024
Hypertension
Hyperlipidemia
DM2, Hgb A1c 6.9%
Echo 01/12/2024: EF 55-60%, stage I diastolic dysfunction, no significant valvular disease
LHC 06/28/2024: LAD: long 99% mid LAD stenosis, D1 has 60% proximal stenosis, D2 has 65-70%. Mid-LCx has 80-90% stenosis. RCA has proximal 50% stenosis, mid 30-40% stenosis with long 40-60% stenosis distally.
Plan:
Multivessel coronary artery disease with USA
-Continue telemetry monitoring with plan for PCI intervention on Monday with Dr. Dennison
-2D echocardiogram January 2024 with normal biventricular size and systolic function and no regional wall motion abnormality. No hemodynamically significant valve disease with aortic sclerosis.
-Continue IV heparin drip
-Continue aspirin.
-Load Plavix
-Continue metoprolol succinate 25 mg twice daily
-Lipid profile 06/30/2024 prestatin: Triglycerides 172, total cholesterol 182, LDL 109, HDL 39; continue high intensity atorvastatin (new). Goal LDL ideally 55 to 60 mg/dL. Would repeat fasting lipid profile in 3 months
-11 beats of NSVT on 06/29/2024.
-Continue telemetry monitoring. No further NSVT
Type 2 diabetes mellitus with hemoglobin A1c 6.9% with fatty liver infiltration on CT chest
-Will hold metformin with plans for left heart catheterization on Monday
-Eventual addition of Jardiance 10 mg daily; will have case management assess cost
-Importance of normoglycemia stressed
-Discussed outpatient diabetic education
Probable sleep apnea�patient is currently overwhelmed with medical issues. Will discuss prior to discharge recommendations for outpatient sleep study
Possible interstitial fibrosis on CT of the chest with slightly enlarged lymph nodes in the mediastinum felt to be reactive�will recommend outpatient pulmonary evaluation
Progress Note - Line Painting Machine Operator
Subjective
Date of Service: June 30, 2024
Patient seen and examined. Patient is sitting out of bed to chair and has had no further chest pain or pressure. No dizziness or lightheadedness. He is calm and appreciative of the care he received yesterday encouraging him to stay for repeat
left heart catheterization and revascularization. He reiterated that he understands this would not be our first choice but it is his choice. He also seems motivated to improve diet and lifestyle choices. All questions were answered.
Objective
Labs:
06/30/24 02:26
06/30/24 02:
Labs
Hgb 15.2 g/dL (13.0-18.0) 06/30/24 02:
Hct 41.3 % (39.0-52.0) 06/30/24 02:
Plt Count 256 10^3/uL (130-400) 06/30/24 02:26
PT 13.6 Sec (11.4-14.6) 06/29/24 03:28
INR 1.06 06/29/24 03:28
APTT 83.8 Sec (23.4-35.0) H 06/30/24 09:21
Sodium 139 mmol/L (135-145) 06/30/24 02:26
Potassium 4.0 mmol/L (3.5-5.1) 06/30/24 02:26
BUN 22 mg/dl (9-20) H 06/30/24 02:26
Creatinine 0.9 mg/dL (0.7-1.3) 06/30/24 02:
Glucose 135 mg/dl (70-99) H 06/30/24 02:
Vital Signs and I&O:
Vital Signs
Temp Pulse Resp BP Pulse Ox
98.3 F 79 20 130/74 92
06/30/24 11:04 06/30/24 12:00 06/30/24 11:04 06/30/24 11:04 06/30/24 12:03
Vital Signs
Temp Pulse Resp BP Pulse Ox
98.3 F 79 20 130/74 92
06/30/24 11:04 06/30/24 12:00 06/30/24 11:04 06/30/24 11:04 06/30/24 12:03
Intake & Output
06/28/24 06/29/24 06/30/24 07/01/24
06:59 06:59 06:59 06:59
Intake Total 742 / 742 600 / 600 400 / 400
Balance 742 / 742 600 / 600 400 / 400
Physical Exam
Physical Exam
General: No acute distress, AAOX3
Neck: Negative JVD
Heart: Regular, Negative S3 positive S1/S2, Negative S4, No murmur
Lungs: CTA b/l, negative wheezes/rales/rhonchi
Abd: Positive BS, NT/ND, neg rebound/rigidity/guarding
Ext: Negative cyanosis/clubbing/edema
Neuro: nonfocal
[2024-06-30 15:06] VITALS: BP 132/91
[2024-06-30] MEDS: PLAVIX 300 MG PO (16:21)
[2024-06-30 17:03] LABS: Glucose - Point of Care 124 mg/dl (70-99)
[2024-06-30] MEDS: LIPITOR 80 MG PO (18:29)
--- NOTE | 2024-06-30 19:16 | PTCARENOTE ---
Pt denies any discomfort, OOB in a chair for most of the day. Heparin infusion at therapeutic level. Plan for PCI on 07/01.
[2024-06-30 19:31] VITALS: BP 139/87
[2024-06-30 21:57] LABS: Glucose - Point of Care 109 mg/dl (70-99)
[2024-06-30 22:36] VITALS: BP 146/102
[2024-06-30] MEDS: ATIVAN 0.5 MG PO (22:38)
[2024-07-01] VITALS (20 sets, daily range): BP systolic 95–146; BP diastolic 59–115; BMI 33.8
--- NOTE | 2024-07-01 00:32 | PTCARENOTE ---
HR SR w/BBB. Heparin infusing @ 1800u/hr. Pt and spouse understand plan of care for tomorrow, pt's asking we give her a call when pt goes to procedure. Pt very anxious about going for cath tomorrow, requested something to help anxiety. PRN
ativan administered - see MAR. Pt denies any CP. Informed to notify RN if any changes, call lara within reach.
[2024-07-01] MEDS: HEPARIN 25000 UNITS/250 ML IV (05:02)
[2024-07-01 05:58] LABS: APTT 102.6 Sec (23.4-35.0)
[2024-07-01 05:59] LABS: Blood Urea Nitrogen 22 mg/dl (9-20); Calcium 9.4 mg/dl (8.4-10.2); Carbon Dioxide 28 mmol/L (22-30); Chloride 99 mmol/L (98-107); Estimated Creatinine Clearance 107 ml/min; Glucose 125 mg/dl (70-99); Potassium 3.9 mmol/L (3.5-5.1); Sodium 138 mmol/L (135-145); eGFR > 60.00
[2024-07-01 07:32] LABS: Glucose - Point of Care 119 mg/dl (70-99)
[2024-07-01] MEDS: LOW STRENGTH ASPIRIN 81 MG PO (08:31)
[2024-07-01] MEDS: NORVASC 10 MG PO (08:33)
[2024-07-01] MEDS: TOPROL XL 25 MG PO ×2 (08:33→20:32)
[2024-07-01] MEDS: PLAVIX 75 MG PO (08:33)
[2024-07-01] MEDS: JANUVIA PO (08:34)
--- NOTE | 2024-07-01 10:17 | PTCARENOTE ---
Patient resting comfortably in bed, vitals stable, pt endorsed not feeling any chest pain, RN updated pt on plan of care and medication education
--- NOTE | 2024-07-01 11:03 | PN.DE.MGMTRT ---
Insulin Management
- -
07/01/2024: Diabetes Management F/U:
59 year old male with hx of chest pain with abnormal stress test, admitted for cardiac cath--> severe MVCA, awaiting CT surgical consult.
Pt reports hx of T2DM, was taking Janumet, exercising regularity, eating healthy and ended up losing ~40lbs which prompted him to stop taking his diabetes meds. He also stopped exercising 6 months ago due to chest pain and ended up gaining ~20 lbs
back. states he has a glucose meter and was regularly testing his blood sugars before he stopped taking his meds.
Current A1C is 6.9%, fasting glucose 156 this AM. Cr 0.9. eGFR>60.
Pt is awake, A/O x3, sitting up in bed, NPO for Left heart Cath today, bale to discuss diabetes Mgt
States he is very anxious and nervous about procedure.
06/28 started Januvia 100mg daily. Glucose stable and in range 86 to 131, fasting 125 this AM
Will make no changes to current regimen: Januvia 100mg daily and Low corrective insulin with meals. Metformin on HOLD
Pt reports that he has an old OneTouch glucose monitor but would like a new one because some parts of his lancing device broke off.
Will provide pt with new OneTouch glucose meter tomorrow.
Diabetes History
- -
Type of Diabetes: 2
Pre-Admission Diabetes Regimen
07/01/24
05:07
Creatinine 0.9
Lab Results
Hemoglobin A1c 6.9 % (4.0-5.6) H 06/28/24 08:02
Insulin Pump Settings
IP Diabetes Regimen
06/30/24 06/30/24 06/30/24
11:54 17:02 21:55
Glucose
POC Glucose 86 124 H 109 H
07/01/24 07/01/24
05:07 07:30
Glucose 125 H
POC Glucose 119 H
Meal type: Dinner
Meal type: Breakfast
Amount consumed: 100%
Amount consumed: 75%
Patient Education
[2024-07-01 13:21] LABS: Glucose - Point of Care 113 mg/dl (70-99)
--- NOTE | 2024-07-01 13:29 | PTCARENOTE ---
Called [facility] to seek a time for patient. cath lab radiology technician relayed that they are awaiting OR back up availability at this time, but that patient will still go to [facility] today
[2024-07-01 14:20] LABS: ACT-LR - POC 269 Seconds (116-155)
--- NOTE | 2024-07-01 15:14 | ITS.CL.CATH ---
[facility] - Catheterization
Cardiac Catheterization
Procedure Report:
ANGIOPLASTY REPORT
Date of Procedure: July 01, 2024
Referring: Dr. Britney Victoria
INDICATIONS: This is a 59-year-old gentleman with multivessel coronary artery disease including subtotally occluded LAD, moderate stenosis in the first diagonal branch and second diagonal branch and high-grade distal circumflex/OM stenosis with the
LAD and circumflex having separate origin from the aorta. He has moderate diffuse disease in the RCA. He was seen by CT surgery and adamantly refused consideration for surgical revascularization threatening to leave the hospital against medical
advice. The percutaneous treatment options were not felt to be prohibitive and we elected to proceed with revascularization of the mid LAD and circumflex-OM.
PROCEDURES:
1. Successful stenting of the mid LAD with a 3.5 x 22 mm Bandar stent that was implanted at nominal pressures and postdilated to 20-23 jose roberto with a 3.75 mm noncompliant balloon
2. Successful stenting of the mid circumflex-OM with a 2.25 x 26 mm [place] stent that was postdilated with a 2.25 mm noncompliant balloon
ACCESS: Right radial artery, 6 Turkish sheath
ANGIOPLASTY REPORT: Ultrasound guidance was utilized to obtain access in the right radial artery and a 6 Turkish sheath was inserted. Intravenous heparin, 10,000 units, was administered and the ACT was monitored after adequate time was given for the
heparin to circulate. Additional heparin was administered to maintain an ACT within therapeutic limits. The patient had received a 300 mg loading dose of clopidogrel on 06/30/2024.
The origin of the left main was cannulated with a 6 Turkish EBU 3.5 guiding catheter and a BMW wire was advanced across the stenosis in the mid LAD. Balloon predilation was performed using a 2.25 x 15 mm balloon and was followed by placement of a
3.5 x 22 mm [place] stent that was implanted at nominal pressures then postdilated with a 3.75 mm noncompliant balloon and the stented segment was postdilated to high pressures between 20 and 23 jose roberto achieving a final luminal diameter of 3.99 mm.
The BMW wire was removed and the guide catheter was disengaged from the LAD ostium and redirected to selectively cannulate the origin of the circumflex. A BMW guidewire across the high-grade circumflex stenosis and into the large terminal obtuse
marginal branch. Balloon predilation was performed with a 2.25 mm Euphora balloon and the vessel was then stented with a 2.25 x 26 mm [place] stent that was implanted at nominal pressures and postdilated to high pressures with a 2.25 mm noncompliant
balloon
COMPLICATIONS: None
RADIATION SUMMARY: Fluoro Time (min): 14.7, Dose (mGy): 948.2, DAP (Gy.cm2) : 59.7
CONCLUSION
1. Successful stenting of the mid left anterior descending with a 3.5 x 22 mm [place] stent that was postdilated to high pressures with a 3.75 mm noncompliant balloon between 20 and 23 jose roberto.
2. Successful stenting of the mid circumflex into a terminal obtuse marginal branch with a 2.25 x 26 mm Bandar stent that was postdilated with a 2.25 mm noncompliant balloon
RECOMMENDATIONS
1. Uninterrupted dual antiplatelet therapy for 12-month
2. High intensity statin therapy
3. Newly diagnosed diabetes with hemoglobin A1c of 6.9%. Will add an ALIZE inhibitor to current medical regimen both for blood pressure control and to lower risk for diabetic complications
4. Aggressive blood pressure lowering with goal blood pressure less than 130/80
5. Residual coronary disease in the first and second diagonal branches can be managed medically unless symptoms prove refractory to medical therapy
Copy to: Dr. Britney Victoria
[2024-07-01] MEDS: NSS 1000 IV (15:15)
[2024-07-01 15:47] LABS: Glucose - Point of Care 119 mg/dl (70-99)
[2024-07-01 15:49] LABS: ACT-LR - POC > 397 Seconds (116-155)
[2024-07-01 15:49] LABS: ACT-LR - POC > 397 Seconds (116-155)
--- NOTE | 2024-07-01 16:07 | PTCARENOTE ---
Patient back from [facility], vital signs stable, TR band on patient at 1503 per farm laborer RN report. Pt instructed by RN on limb restrictions and TR band care. Pt ordered dinner. POC glucose is WNL. Pt updating over the phone about procedure.
--- NOTE | 2024-07-01 16:13 | CM ---
Reviewed chart. Telephone call to [facility], to check on co-pay for Jardiance and Farxiga. He has a high deductible plan. Jardiance would be $300.00 a month, and if he uses the Jardiance coupon his co-pay would go down to $125.00 a
month. Farxiga co-pay would be $ 192.00 a month and if he uses the Farxiga coupon his co-pay would be $42.00 a month. Reviewed with him and he is thinking he may not be able to afford but he wants to review with his spouse. Prior to admission he
resides with his spouse in a spilt level home. He has five steps to each level. Prior to admission he was independent with ambulation and adls. He does not have any DME in the home. Medical work-up in progress. The discharge plan is to return home
with his spouse when medically stable.
[2024-07-01] MEDS: LIPITOR 80 MG PO (17:25)
[2024-07-01 17:46] LABS: Glucose - Point of Care 180 mg/dl (70-99)
[2024-07-01 19:49] LABS: Hepatitis C Antibody Negative (Negative)
[2024-07-01 21:58] LABS: Glucose - Point of Care 90 mg/dl (70-99)
[2024-07-02 03:27] VITALS: BP 123/72
--- NOTE | 2024-07-02 03:32 | PTCARENOTE ---
RT band removed, site clean and intact. Pt denies pain or discomfort. Pt refused morning labs. Education provided
[2024-07-02 07:00] VITALS: BP 119/85
[2024-07-02 07:06] LABS: Glucose - Point of Care 112 mg/dl (70-99)
[2024-07-02] MEDS: LOW STRENGTH ASPIRIN 81 MG PO (08:06)
[2024-07-02] MEDS: TOPROL XL 25 MG PO (08:06)
[2024-07-02] MEDS: ZESTRIL 5 MG PO (08:06)
[2024-07-02] MEDS: JANUVIA 100 MG PO (08:06)
[2024-07-02] MEDS: PLAVIX 75 MG PO (08:06)
[2024-07-02] MEDS: NORVASC 10 MG PO (08:07)
--- NOTE | 2024-07-02 08:39 | PN.DE.MGMTRT ---
Insulin Management
- -
07/02/2024: Diabetes Management Follow up:
Patient admitted with hx of chest pain with abnormal stress test, for cardiac cath--> severe MVCA, awaiting CT surgical consult.
Pt reports hx of T2DM, was taking Janumet, exercising regularity, eating healthy and ended up losing ~40lbs which prompted him to stop taking his diabetes meds. He also stopped exercising 6 months ago due to chest pain and ended up gaining ~20 lbs
back. states he has a glucose meter and was regularly testing his blood sugars before he stopped taking his meds.
Current A1C is 6.9%, fasting glucose 156 this AM. Cr 0.9. eGFR>60.
Pt is awake, A/O x3, sitting out of bed in chair, s/p Left heart Cath 07/01, johnny to discuss diabetes Mgt. Anxious for discharge.
06/28 started Januvia 100mg daily. Glucose stable 113 to 180, fasting 112 this AM
Will make no changes to current regimen: Januvia 100mg daily and Low corrective insulin with meals. Metformin to restart tomorrow.
Pt reports that he is not sure if his meter works or not. Also not sure what his insurance covers. He has NOT tested his glucose for a year and a half. Recommended he check with insurance which meter is covered so ongoing supplies will be
covered. He agrees to test BID in pattern provided and report to his primary doctor. He will call me if he needs new prescription for test meter and supplies once he confirms his insurance coverage.
Diabetes History
- -
Type of Diabetes: 2
Pre-Admission Diabetes Regimen
Lab Results
Hemoglobin A1c 6.9 % (4.0-5.6) H 06/28/24 08:02
Insulin Pump Settings
IP Diabetes Regimen
07/01/24 07/01/24 07/01/24
13:19 15:46 17:44
POC Glucose 113 H 119 H 180 H
07/01/24 07/02/24
21:57 07:04
POC Glucose 90 112 H
Meal type: Breakfast
Meal type: Dinner
Amount consumed: 100%
Amount consumed: 100%
Patient Education
--- NOTE | 2024-07-02 09:40 | W.PN.CARDCBS ---
Addendum entered and electronically signed by Nenita Donald PA-C 07/02/24 10:03:
[id number]
Addendum entered and electronically signed by Timothy Dennison MD 07/02/24 09:57:
attending addendum: Patient seen and examined. PA note reviewed and findings independently confirmed by me. Post PCI and feels well. He has been ambulatory in room. No chest pain or wrist pain.
Stable for discharge. Discussed the need to remain compliant with dual antiplatelet therapy. He needs to keep followup appointments as scheduled. Continue high intensity statin
PE:
Gen: AAO, NAD, no complaints
Lungs: Clear to bases bilaterally
CV: RRR with normal S1 and S2.
Ext: Right wrist looks good. No edema
RECOMMENDATIONS:
-stable for discharge
-high intensity statin
-continue antihypertensives for goal <130/80
-Dual antiplatelet therapy: Reviewed how important it is to remain compliant with antiplatelet therapy.
Original Note:
Today's Communication / Plan
-
for DC
cont asa, plavix, lipitor, toprol, lisinopril, norvasc
cardiac rehab
OP cardiac follow up arranged
needs OP pulm eval
Impression / Plan
-
PCP: Dr. Hair Giang
Senior Mechanical Designer: Dr. Britney Victoria
Impression:
CAD
MV CAD by cath 06/28/2024
s/p LAD and circ PCI 07/01/24
Hypertension
Hyperlipidemia
DM2, Hgb A1c 6.9%
Echo 01/12/2024: EF 55-60%, stage I diastolic dysfunction, no significant valvular disease
LHC 06/28/2024: LAD: long 99% mid LAD stenosis, D1 has 60% proximal stenosis, D2 has 65-70%. Mid-LCx has 80-90% stenosis. RCA has proximal 50% stenosis, mid 30-40% stenosis with long 40-60% stenosis distally.
Plan:
-he is feeling well overnight. eager for DC
-He presented due to abnormal stress test ordered for chest pain for cardiac catheterization on 06/28/2024. Cath showed multivessel CAD. Was seen by CT surgery, however patient preferred stenting
-s/p LAD and circ PCI 07/01/24. residual diagonal disease with plan for medical mgmt at this time
-continue asa, plavix, statin
-BPs improved. continue toprol, lisinopril, norvasc
-in SR on review of tele overnight
-R wrist site with dressing c/d/i
-new diabetic. on metformin (to resume 07/03 PM), januvia. jardiance cost prohibitive at this time
-cardiac rehab
-for DC today
-BMP in 1 week
-OP cardiac follow up arranged
-should have OP sleep study
-Possible interstitial fibrosis on CT of the chest with slightly enlarged lymph nodes in the mediastinum felt to be reactive, OP pulm evaluation
-total DC time 39 minutes
Progress Note - Senior Mechanical Designer
Subjective
Date of Service: July 02, 2024
Denies chest pain overnight. Denies shortness of breath, palpitations. Eager for discharge
Objective
Labs:
Labs
Hgb 15.2 g/dL (13.0-18.0) 06/30/24 02:26
Hct 41.3 % (39.0-52.0) 06/30/24 02:26
Plt Count 256 10^3/uL (130-400) 06/30/24 02:26
PT 13.6 Sec (11.4-14.6) 06/29/24 03:28
INR 1.06 06/29/24 03:28
APTT 102.6 Sec (23.4-35.0) H 07/01/24 05:07
Sodium 138 mmol/L (135-145) 07/01/24 05:07
Potassium 3.9 mmol/L (3.5-5.1) 07/01/24 05:07
BUN 22 mg/dl (9-20) H 07/01/24 05:07
Creatinine 0.9 mg/dL (0.7-1.3) 07/01/24 05:07
Glucose 125 mg/dl (70-99) H 07/01/24 05:07
Vital Signs and I&O:
Vital Signs
Temp Pulse Resp BP Pulse Ox
97.4 F 76 20 119/85 94
07/02/24 06:56 07/02/24 08:07 07/02/24 06:56 07/02/24 08:07 07/02/24 06:56
Vital Signs
Temp Pulse Resp BP Pulse Ox
97.4 F 76 20 119/85 94
07/02/24 06:56 07/02/24 08:07 07/02/24 06:56 07/02/24 08:07 07/02/24 06:56
Intake & Output
06/30/24 07/01/24 07/02/24 07/03/24
07:59 07:59 07:59 07:59
Intake Total 600 / 600 880 / 880 1480 / 1480
Balance 600 / 600 880 / 880 1480 / 1480
Physical Exam
Physical Exam
GEN: No distress, awake, alert, oriented x3
HEENT: supple, anicteric, mmm, eomi
LUNGS: CTA B/L, no wheezes/rales
CV: Reg, S1/S2, no murmur
ABD: soft, BS+, NT/ND
EXT: No cyanosis, clubbing, edema
NEURO: Gross non-focal
SKIN: Warm, pink, dry. No rash. R wrist site with dressing c/d/i, some ugy-incisional ecchymoses
--- NOTE | 2024-07-02 09:52 | W.DS.TRANS ---
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
-
Discharge Instructions:
Discharge Diagnosis/Procedures CAD, s/p angioplasty and stent x1 to Left
Anterior Descending and x1 to Left Circumflex
arteries
Diet Low Cholesterol
Driving Restrictions No driving for 24 hours
Blood Work BMP in 1 week
Other Services Cardiac Rehab
Instructions:
Stand-Alone Forms: DC Instructions- Cath/EP Lab
Changes to Home Medications: Yes
Discharge Medications:
DC Medications w/original date entered in [facility]
amlodipine 10 mg tablet (Norvasc) 10 mg PO DAILY Blood Pressure 06/28/24
aspirin 81 mg chewable tablet 81 mg PO DAILY #90 tabs 07/01/24
atorvastatin 80 mg tablet 80 mg PO QPM #90 tabs 07/01/24
clopidogrel 75 mg tablet 75 mg PO DAILY #90 tabs 07/01/24
lisinopril 5 mg tablet 5 mg PO DAILY #90 tabs 07/01/24
metformin 500 mg tablet 500 mg PO BID@0800,1700 #180 tabs 07/01/24
metoprolol succinate 25 mg tablet,extended release 24 hr 25 mg PO BID #180 tabs 07/01/24
sitagliptin phosphate 100 mg tablet (Januvia) 100 mg PO DAILY #90 tabs 07/01/24
Home Medication Changes
asa, lipitor, plavix, lisinopril, metformin, toprol, januvia are new
Pending Results: No
--- NOTE | 2024-07-02 10:13 | CM ---
Reviewed chart. Met with Mr. Coles to review discharge plans. He states he is feeling well and maybe able to go home. Reviewed cost of Jardiance and Farxiga. He feels he can not cover the cost. Telephone call to his insurance to check on co-pay
for Plavix. His co-pay for Plavix one month supply is $13.65 a month or for a 90 day supply the co-pay is $31.65. He is agreeable to the co-pay. Also reviewed [facility] with him. He will fill his first script at [facility]. Prior to to admission
he resides with his spouse in a spilt level house. He has five steps to get to each level. Prior to admission he was independent with ambulation and adls. He does not have any DME in the home. He has a prescription plan and uses [facility].
Medical work-up in progress. The discharge plan is to return home with his spouse when medically stable.
[2024-07-02 10:41] VITALS: BP 122/85; BMI 33.8
--- NOTE | 2024-07-02 10:47 | PTCARENOTE ---
case management helped with cost of medications. D/C instructions given to patient, verbalizes understanding. INT D/C'd, telemetry d/C'd, personal belongings packed and sent home with patient. D/C to home via wc accompanied by staff.
== END 2024-07-02 12:19 | disposition home or self-care (01) | DRG 322 ==
LOC: IVU 13:40
PROVIDERS: Internal Medicine Cardiovascular Disease; Nurse Practitioner; Nurse Practitioner Adult Health; ADMITTING PHYSICIAN Internal Medicine Interventional Cardiology; CONSULT PHYSICIAN Thoracic Surgery (Cardiothoracic Vascular Surgery); FAMILY PHYSICIAN Internal Medicine
PROC: B2111ZZ Fluoroscopy of Multiple Coronary Arteries using Low Osmolar Contrast (ICD-10-PCS; 2024-06-28)
PROC: 4A023N7 Measurement of Cardiac Sampling and Pressure, Left Heart, Percutaneous Approach (ICD-10-PCS; 2024-06-28)
PROC: B2151ZZ Fluoroscopy of Left Heart using Low Osmolar Contrast (ICD-10-PCS; 2024-06-28)
PROC: 027135Z Dilation of Coronary Artery, Two Arteries with Two Drug-eluting Intraluminal Devices, Percutaneous Approach (ICD-10-PCS; 2024-07-01)
DX: I25.110 Atherosclerotic heart disease of native coronary artery with unstable angina pectoris (principal); K76.0 Fatty (change of) liver, not elsewhere classified; E11.65 Type 2 diabetes mellitus with hyperglycemia; E66.9 Obesity, unspecified; Z68.34 Body mass index [BMI] 34.0-34.9, adult; I10 Essential (primary) hypertension; I25.82 Chronic total occlusion of coronary artery; J84.10 Pulmonary fibrosis, unspecified; E78.5 Hyperlipidemia, unspecified; Z79.82 Long term (current) use of aspirin; Z79.899 Other long term (current) drug therapy; Z87.891 Personal history of nicotine dependence; Z88.0 Allergy status to penicillin
CPT/HCPCS: 36600; 71046; 71250; 80048; 80053; 80061; 82248; 82805; 82962; 83036; 84443; 85027; 85347; 85610; 85730; 86803; 93005; 93458; 93880; C1725; C1769; C1874; C1894; C9600; Q9967